=== PATIENT | female | born 2005 | race Caucasian/White ===

== ENCOUNTER 2025-08-26 15:35 | Emergency (ER) | payer MEDICAID ==
[~2025-08-26] VITALS: Ht 160 cm; Wt 68.2 kg
[2025-08-26 15:37] VITALS: TEMP 98.5
[2025-08-26] MEDS ORDERED: CHLO118M PO (16:34)
[2025-08-26] MEDS ORDERED: IBUP-1984 PO (16:34)
[2025-08-26] MEDS ORDERED: HYDR-3965 PO (16:34)
--- NOTE | 2025-08-26 16:35 | Physician Documentation ---
HPI ~ General Chief Complaint: Tooth Problem Stated Complaint: TOOTH PAIN Time Seen by MD: 16:16 Primary Medical Doctor: [facility] History of Present Illness HPI Comment 20-year-old female who reports acute on chronic left lower dentalgia secondary to wisdom teeth coming in. No reported fever trauma. He has tried [id number] Tylenol ibuprofen without resolution of pain. She is in moderate distress. Medication Reconciliation Allergies: Coded Allergies: No Known Allergies (Unverified , 08/26/25) Scheduled Chlorhexidine Gluconate (Peridex), 15-30 ML PO Q8H Ibuprofen* (Motrin*), 1 TAB PO Q8H Scheduled PRN Hydrocodone Bit/Acetaminophen 5/325 MG (Meridian 5/325 MG), 1-2 TAB PO Q4-6 hours PRN for pain Review of Systems All Other Systems at this time: Reviewed and Negative ENT: Reports: other (Dental) Physical Exam Vital Signs: RN Vital Signs have been reviewed: Yes, Temperature: 98.5, Source: Temporal, Heart Rate: 95, Respiratory Rate: 18, BP: 133/94, Pulse Oximetry: 98, Weight: 68.200 Oxygen Flow Rate: 0 General Appearance: alert, WD/WN, moderate distress EENT General: normal ENT inspection Mouth/Throat: normal mouth inspection Teeth/Gums: gingiva redness Face: normal inspection; No: swelling Head: normal inspection Neck: non-tender Respiratory: no respiratory distress Chest: no accessory muscle use Gastrointestinal: non-tender Lymphatic: no adenopathy Neurologic: oriented x4 Psychiatric: normal mood/affect Progress Results/Orders Results/Orders Vital Signs 08/26/25 08/26/25 15:37 16:48 Temp 98.5 Pulse 95 71 Resp 18 18 B/P (MAP) 133/94 131/81 Pulse Ox 98 96 O2 Flow Rate 0 Medical Decision Making Additional information obtaine: N/A Findings Examination and history consistent with dentalgia secondary to wisdom teeth. We will provide pain management and Peridex. Recommendations are to follow up with local dentist for consideration of extraction. Differential Dx:Considerations: Include: Alveolar fracture, Alveolar osteitis, Facial Cellulitis, Periapical abscess, Peridontal abscess, Post-extraction bleeding, Pulpitis, Tooth subluxation Departure Disposition: 01 HOME / SELF CARE / HOMELESS Impression: Primary Impression: Toothache Condition: Stable Discharge Instructions: Dental Pain Additional Instructions: Please begin medications as directed & continue your efforts to establish with local dentist for consideration of extraction. Thank you for visiting [facility]. Referrals: NO PRIMARY CARE PROVIDER (PCP) Prescriptions Hydrocodone Bit/Acetaminophen 5/325 MG (Meridian 5/325 MG) 5 Mg/325 Mg Tablet 1-2 TAB PO Q4-6 hours PRN for pain, #9 TAB Prov: KILLIAN WESLEY 08/26/25 Chlorhexidine Gluconate (Peridex) 0.12 % Mouthwash 15-30 ML PO Q8H for 8 Days, #473 ML 0 Refills Prov: KILLIAN WESLEY 08/26/25 Ibuprofen* (Motrin*) 400 Mg Tablet 1 TAB PO Q8H for pain or fever for 10 Days, #30 TAB Prov: KILLIAN WESLEY 08/26/25 Education Educated: Patient Educated regarding: diagnosis, treatment, prognosis, need for follow up Signature Scribe Signature: . Attestation: . KILLIAN WESLEY Aug 26, 2025 16:35
[2025-08-26 16:48] VITALS: BP 131/81; PULSE 71; RESP 18; O2SAT 96
== END 2025-08-26 16:51 | disposition home or self-care (01) ==
LOC: ER 15:36
DX: K08.89 Other specified disorders of teeth and supporting structures (principal); Z79.899 Other long term (current) drug therapy
CPT/HCPCS: 99283